=== PATIENT | male | born 1985 | race Two or more races ===

== ENCOUNTER 2018-04-27 20:10 | Emergency (ER) | payer MEDICAID ==
[~2018-04-27] VITALS: Ht 185.4 cm; Wt 78.5 kg
[2018-04-27 20:20] VITALS: BP 124/74
[2018-04-27] MEDS ORDERED: ACETAMINOPHEN 325 MG TAB PO ONE (20:30)
[2018-04-27 22:38] LABS: Basophils # (auto) 0 uL; Basophils % (auto) 0.3 % (0.0-2.0); Eosinophils # (auto) 0 uL; Eosinophils % (auto) 0.2 % (0.0-7.0); Hematocrit 37.6 % (41.0-53.0); Hemoglobin 12.7 g/dL (13.5-17.5); Lymphocytes # (auto) 2.1 uL; Lymphocytes % (auto) 27.9 % (10.0-50.0); Mean Corpuscular Hemoglobin 28.2 pg (28.0-32.0); Mean Corpuscular Hgb Conc. 33.7 g/dL (32.0-36.0); Mean Corpuscular Volume 83.8 fL (80.0-100.0); Monocytes # (auto) 0.7 uL; Monocytes % (auto) 9.9 % (0.0-12.0); Neutrophils # (auto) 4.7 uL; Neutrophils % (auto) 61.7 % (37.0-80.0); Nucleated Red Blood Cells % 0.1 %; Platelet Count (auto) 183 10^3/uL (140-450); Red Blood Cells 4.49 10^6/uL (4.5-5.90); Red Cell Distribution Width 13.5 % (11.8-14.3); White Blood Cell 7.5 10^3/uL (4.4-10.8)
[2018-04-27 22:53] LABS: Albumin 3.2 g/dL (3.4-5.0); Calcium 8.2 mg/dL (8.5-10.1); Potassium 3.5 mmol/L (3.5-5.1)
[2018-04-27 22:56] LABS: BUN/Creatinine Ratio 12.2; Bilirubin, Total 0.4 mg/dL (0.2-1.0); Total Protein 8.4 g/dL (6.4-8.2)
== END 2018-04-27 22:16 | disposition left against medical advice (07) ==
LOC: ER 20:16
DX: N50.811 Right testicular pain (principal); Z53.21 Procedure and treatment not carried out due to patient leaving prior to being seen by health care provider
CPT/HCPCS: 36415; 80053; 85025

== ENCOUNTER 2018-04-28 15:38 | Emergency (ER) | payer MEDICAID ==
[~2018-04-28] VITALS: Ht 185.4 cm; Wt 78.0 kg
[2018-04-28 15:49] VITALS: BP 145/79
[2018-04-28] MEDS ORDERED: cefTRIAXone SOD 1,000 MG VL IM ONE (19:15)
[2018-04-28] MEDS ORDERED: LIDOCAINE 1% HCL (LOCAL ANESTH.) INJ 20ML MDV ONE (19:21)
== END 2018-04-28 19:27 | disposition home or self-care (01) ==
LOC: ER 15:38
DX: N45.1 Epididymitis (principal)
CPT/HCPCS: 76870; 96372; 99284; J0696; J2001

== ENCOUNTER 2019-09-15 11:57 | Inpatient (IN) | payer MEDICAID ==
[~2019-09-15] VITALS: Ht 172.7 cm; Wt 65.8 kg
[2019-09-15] MEDS ORDERED: ACETAMINOPHEN 325 MG TAB PO ONE (12:30)
[2019-09-15] MEDS ORDERED: SODIUM CHLORIDE 0.9% 1,000 ML IV ONE (13:00)
[2019-09-15 13:27] LABS: Hemoglobin 10.3 g/dL (13.5-17.5); Mean Corpuscular Hgb Conc. 33.2 g/dL (32.0-36.0); Mean Corpuscular Volume 81.2 fL (80.0-100.0); Platelet Count (auto) 377 10^3/uL (140-450); Red Blood Cells 3.81 10^6/uL (4.5-5.90); Red Cell Distribution Width 13.6 % (11.8-14.3); White Blood Cell 4.6 10^3/uL (4.4-10.8)
[2019-09-15 13:37] LABS: Basophils % (manual) 0 (0.0-2.0); Blast Cells 0; Metamyelocytes % 0; Myelocytes % 0; Promyelocytes % 0; Reactive Lymphocytes 0
[2019-09-15 13:48] LABS: Lactic Acid w/Reflex 2.2 mmol/L (0.4-2.0); Potassium 4.1 mmol/L (3.5-5.1)
[2019-09-15 13:53] LABS: Albumin 1.4 g/dL (3.4-5.0); BUN/Creatinine Ratio 17.7; Calcium 8.3 mg/dL (8.5-10.1)
[2019-09-15 13:56] LABS: Bilirubin, Total 0.5 mg/dL (0.2-1.0); Total Protein 6.7 g/dL (6.4-8.2)
[2019-09-15] MEDS ORDERED: hydrOXYchloroQUINE SULFATE 200 MG TAB PO ONE (14:00)
[2019-09-15] MEDS ORDERED: cefTRIAXone 1GM/50ML D5W 50 ML IV ONE (14:00)
[2019-09-15] MEDS ORDERED: ZINC SULFATE 220mg CAP or TAB PO ONE (14:00)
[2019-09-15] MEDS ORDERED: SULFAMETH-TRIMETH 80/16MG-ML 15 ML in D5W 5% 500 ML IV ONE (14:00)
[2019-09-15] MEDS ORDERED: ASCORBIC ACID 500 MG TAB PO ONE (14:00)
[2019-09-15 14:05] LABS: Band Neutrophils % (manual) 1; Eosinophils % (manual) 2 (0-7); Lymphocytes % (manual) 12 (10.0-50.0); Monocytes % (manual) 6 (0-12)
[2019-09-15] MEDS ORDERED: NITROGLYCERIN 0.4 MG SL TAB SL PRN (15:15)
[2019-09-15] MEDS ORDERED: ONDANSETRON HCL 4 MG/2 ML VIAL IV PRN (15:15)
[2019-09-15] MEDS ORDERED: LEVALBUTEROL HCL 1.25 MG/3 ML NEB NEB PRN (15:15)
[2019-09-15] MEDS ORDERED: DexAMETHasone SOD PHOS 4 MG/1ML SDV INJ IV ONE (15:15)
[2019-09-15] MEDS ORDERED: MORPHINE SULF INJ 2 MG/ML SYRINGE 1ML IV PRN ×2 (15:15)
[2019-09-15 15:21] VITALS: BP 123/58
[2019-09-15] MEDS ORDERED: AZITHROMYCIN 500MG/ 250ML 250 ML IV SCH (15:23)
[2019-09-15] MEDS: SODIUM CHLORIDE 0.9% 1,000 ML IV SCH ×2 (15:26→21:55)
[2019-09-15 16:21] LABS: Urine Amorphous Crystal FEW /hpf (None Seen); Urine Bacteria NONE SEEN /hpf (None Seen); Urine Blood Negative /uL (Negative); Urine Mucus FEW (None Seen); Urine Specific Gravity 1.011 (1.001-1.035); Urine WBC <1 /hpf (0 - 3)
[2019-09-15] MEDS: LEVALBUTEROL HCL 1.25 MG/3 ML NEB NEB SCH (19:17)
[2019-09-15] MEDS ORDERED: methylPREDNISolone ACETATE 80 MG/ML VL IM ONE (21:30)
[2019-09-15] MEDS ORDERED: ALBUTEROL SULF HFA 90MCG INH 200DOSE IN SCH (22:00)
[2019-09-15] MEDS: methylPREDNISolone SOD SUCC 125 MG/2 ML VL IV SCH (22:00)
[2019-09-15] MEDS ORDERED: SULFAMETH-TRIMETH 80/16MG-ML 15 ML in D5W 5% 500 ML IV SCH (22:00)
[2019-09-16] MEDS: LEVALBUTEROL HCL 1.25 MG/3 ML NEB NEB SCH ×4 (00:29→12:00)
[2019-09-16] MEDS: SODIUM CHLORIDE 0.9% 1,000 ML IV SCH (04:35)
[2019-09-16] MEDS: methylPREDNISolone SOD SUCC 125 MG/2 ML VL IV SCH (06:10)
[2019-09-16 07:37] LABS: Hemoglobin 11.5 g/dL (13.5-17.5); White Blood Cell 3.8 10^3/uL (4.4-10.8)
[2019-09-16 07:38] LABS: Hematocrit 34.6 % (41.0-53.0); Mean Corpuscular Hemoglobin 27.1 pg (28.0-32.0); Mean Corpuscular Hgb Conc. 33.3 g/dL (32.0-36.0); Mean Corpuscular Volume 81.5 fL (80.0-100.0); Platelet Count (auto) 364 10^3/uL (140-450); Red Blood Cells 4.25 10^6/uL (4.5-5.90); Red Cell Distribution Width 13.3 % (11.8-14.3)
[2019-09-16 07:47] LABS: Basophils % (manual) 0 (0.0-2.0); Blast Cells 0; Eosinophils % (manual) 0 (0-7); Metamyelocytes % 0; Myelocytes % 0; Promyelocytes % 0; Reactive Lymphocytes 0
[2019-09-16 07:56] LABS: Albumin 1.4 g/dL (3.4-5.0); Band Neutrophils % (manual) 2; Calcium 8.5 mg/dL (8.5-10.1); Lymphocytes % (manual) 30 (10.0-50.0); Monocytes % (manual) 4 (0-12); Potassium 3.9 mmol/L (3.5-5.1)
[2019-09-16 07:59] LABS: Bilirubin, Total 0.3 mg/dL (0.2-1.0)
[2019-09-16 08:12] VITALS: BP 112/55
[2019-09-16] MEDS ORDERED: BICT1TAB PO (08:15)
[2019-09-16] MEDS ORDERED: FLUC200T50 PO (08:15)
[2019-09-16] MEDS ORDERED: ZINC SULFATE 220mg CAP or TAB PO SCH (10:00)
[2019-09-16] MEDS ORDERED: ENOXAPARIN SOD 40 MG/0.4 ML SYRINGE SC SCH (10:00)
[2019-09-16] MEDS ORDERED: FLUCONAZOLE 100 MG TAB PO SCH (10:00)
== END 2019-09-16 08:35 | disposition left against medical advice (07) | DRG 137 ==
LOC: EDBD 11:57 → ER 11:57 → EDUNIT# 11:57 → OVERFLOW 11:58
PROVIDERS: ADMIT Internal Medicine; ATTEND Internal Medicine
DX: B59 Pneumocystosis (principal); D63.8 Anemia in other chronic diseases classified elsewhere; E43 Unspecified severe protein-calorie malnutrition; J96.01 Acute respiratory failure with hypoxia; Z68.22 Body mass index [BMI] 22.0-22.9, adult; Z20.828 Contact with and (suspected) exposure to other viral communicable diseases; Z53.29 Procedure and treatment not carried out because of patient's decision for other reasons; Z21 Asymptomatic human immunodeficiency virus [HIV] infection status
CPT/HCPCS: 36415; 36600; 71045; 71250; 80053; 81001; 82805; 83605; 83615; 85007; 85027; 87040; 87070; 87449; 87804; 87880; 93005; 94640; 96374; 96375; 99291; G0378; J0696; J1100; J3490

== ENCOUNTER 2022-07-22 15:45 | Emergency (ER) | payer SELFPAY ==
[~2022-07-22] VITALS: Ht 182.9 cm; Wt 86.5 kg
[~2022-07-22 15:45] MED LIST: BICT1TAB PO; FLUC200T50 PO
[2022-07-22] MEDS ORDERED: CLINDAMYCIN 600 MG/4 ML VL IM ONE (16:45)
[2022-07-22] MEDS ORDERED: DexAMETHasone SOD PHOS 10MG/1ML VIAL INJ IV ONE (16:45)
[2022-07-22] MEDS ORDERED: CLIN300C8 PO ×2 (16:47)
[2022-07-22] MEDS ORDERED: IBUP600T28 PO ×2 (16:48)
[2022-07-22 21:45] VITALS: BP 114/78
[2022-07-22] MEDS ORDERED: HYDROcodone-ACET 5/325MG TAB PO ONE (21:45)
[2022-07-22] MEDS ORDERED: CLINDAMYCIN 600MG IV 50 ML IV ONE (21:45)
[2022-07-23] MEDS ORDERED: IBUP600T28 PO (17:48)
[2022-07-23] MEDS ORDERED: CLIN300C8 PO (17:48)
== END 2022-07-22 22:30 | disposition home or self-care (01) ==
LOC: ER 15:45
DX: S30.860A Insect bite (nonvenomous) of lower back and pelvis, initial encounter (principal); L03.312 Cellulitis of back [any part except buttock and flank]; W57.XXXA Bitten or stung by nonvenomous insect and other nonvenomous arthropods, initial encounter; Y93.89 Activity, other specified; Y92.89 Other specified places as the place of occurrence of the external cause; Y99.8 Other external cause status
CPT/HCPCS: 96365; 96375; 99284; J1100; J3490